=== PATIENT | female | born 1975 | race Two or more races ===

== ENCOUNTER → 2017-02-21 | Outpatient (CLI) | payer OTHER ==
[2017-02-21 13:11] VITALS: BP 121/68
--- NOTE | 2017-02-21 15:12 | RAD ---
Indication suspect nodule right breast. Note is made of recent outside images demonstrating a well-defined mass in the upper outer right breast at approximately the 11:00 position. Biopsy had been recommended. Preliminary ultrasound images were obtained. The known nodule in the right breast, at the 11:00 position, was reproduced. Tag Machine Operator ultrasound images were saved. Note was made during the preliminary evaluation that the nodule was very vascular. Image guided biopsy was discussed with the patient. The risks of infection and bleeding were outlined. The patient understood the risks associated with the procedure and wished to proceed. The skin was prepped and draped in the routine fashion. Local anesthesia was accomplished with 1% lidocaine. A 14-gauge coaxial biopsy system was utilized. 4 core samples were obtained. After completion of the final core substantial bleeding at the biopsy site was evident. Pressure was maintained by me for approximately 10 minutes. Subsequently the marking clip was placed. Again the patient started to experience substantial bleeding. Pressure was maintained at the biopsy site for approximately 30 minutes.. After this no recurrent bleeding was seen. The biopsy site was subsequently wrapped. An Bryce wrap around the chest was employed and the patient was asked to keep this in place for 6 hours. I indicated to the patient that if significant rebleeding recurred she was to apply pressure and then come to the emergency room. Because of the bleeding a postbiopsy clip mammogram was not obtained and the patient was scheduled to have this performed February 25. The patient tolerated the procedure well apart from the bleeding. The retrieved tissue was placed in formaldehyde and transferred to pathology. IMPRESSION: Successful ultrasound-guided biopsy of mass right breast. Bleeding at the biopsy site was encountered as outlined above
--- NOTE | 2017-02-22 16:26 | PATHOLOGY ---
PATHOLOGY REPORT * * * * * * * * FINAL DIAGNOSIS: Right breast mass, core biopsy: - Intramammary lymph node showing reactive changes. See comment. COMMENT: Sections of the right breast mass core biopsy reveal fibroadipose tissue and segments of lymph node consistent with an intramammary lymph node. The lymph node shows reactive changes. There are focal lymphoid follicles which possess reactive germinal centers containing tingible body macrophages. The paracortex is focally expanded and focally contains a few yellow-brown granular pigment laden macrophages and a few small clusters of epithelioid histiocytes. The medullary sinuses are open and are focally bordered by plasma cells. There is no evidence of metastatic carcinoma or a primary lymphoproliferative disorder. The case is also examined by Dr. Catherine, who concurs with the diagnosis. (JPM:mgr; 02/22/2017) REPORT ELECTRONICALLY SIGNED BY: Ketan Combs M.D. DATE/TIME: 02/22/2017 15:58 * * * * * * * * GROSS PATHOLOGY: Received in formalin labeled "Doris Harper, right breast," are multiple needle cores of yellow-gary fibrofatty tissue measuring 1.0 x 0.6 x 0.3 cm in aggregate dimensions. The tissue is submitted in its entirety in cassette A1. The cold ischemic time is 5 minutes. The total formalin fixation time is ____. (JPM; 02/21/17) INITIAL CPT CODE(S): A; 71270 Professional services performed by [facility] [place] [address] Technical services performed by [facility] at [address] [place] [address], [facility] [address] [address]. SPECIMEN(S) RECEIVED: A.Right breast mass CLINICAL HISTORY: Right breast mass PATIENT: DORIS HARPER /AGE: 106/28/1975 (Age: 41) PATIENT #: [id number] ALT CASE #: SPECIMEN COLLECTION DATE: 02/21/2017 SPECIMEN RECEIVED DATE: 02/21/2017 [facility] - [address] [place] [address] - PHONE: [phone] * * * END OF REPORT * * *
== END | disposition home or self-care (01) ==
LOC: US 12:41 → EDUNIT# 13:00
PROVIDERS: ATTEND Surgery
DX: N63 Unspecified lump in breast (principal)
CPT/HCPCS: 19081; 76942; 88305; C1713

== ENCOUNTER → 2017-02-25 | Outpatient (CLI) | payer OTHER ==
[2017-02-21 13:11] VITALS: BP 121/68
--- NOTE | 2017-02-25 11:07 | RAD ---
DATE: 02/25/2017. EXAM: DIGITAL DIAGNOSTIC RT. HISTORY: Postclip mammography status post jugular biopsy. COMPARISON: 01/31/2017. This study was interpreted with the benefit of Computerized Aided Detection (CAD). FINDINGS: The breast parenchyma is heterogeneously dense, which could reduce sensitivity of mammography. Breast parenchyma level C.. The postbiopsy clip corresponds with the mass superolaterally. This was shown to be a reactive lymph node on pathology. There are scattered benign-appearing calcifications elsewhere. Impression: 1. The postbiopsy clip corresponds with a target lesion. Recommend ongoing clinical follow-up/management of the postprocedural diagnosis.
== END | disposition home or self-care (01) ==
LOC: MAMMO 10:43
PROVIDERS: ATTEND Family Medicine
DX: R92.8 Other abnormal and inconclusive findings on diagnostic imaging of breast (principal)
CPT/HCPCS: G0206; 77065